=== PATIENT | female | born 1955 | race Two or more races ===

== ENCOUNTER 2019-02-22 06:52 | Emergency (ER) | payer MEDICARE, OTHER ==
[~2019-02-22] VITALS: Ht 167.6 cm; Wt 99.8 kg
[2019-02-22 07:01] VITALS: BP 180/6
--- NOTE | 2019-02-22 07:04 | Emergency Room Report ---
History of Present Illness General Chief Complaint: eye redness Source: Patient Present Illness HPI Patient is a 64-year-old female presents after increased bilateral eye redness. She reports having increased itchiness as well as tearing. She denies any fever. She had been undergoing treatment for chronic wound to her left lower extremity and states she is seeing a wound care doctor. Patient denies any fever. She reports having some increased cough. Denies any vomiting or diarrhea. Prior history of high cholesterol. Allergies: Coded Allergies: MORPHINE (Verified Allergy, Unknown, 02/22/19) Patient History Past Medical History: see triage record Reviewed Nursing Documentation: PMH: Agreed; PSxH: Agreed Review of Systems All Other Systems: negative except mentioned in HPI Physical Exam Sp02 EP Interpretation: reviewed, normal General Appearance: normal inspection, well appearing, no apparent distress, alert, GCS 15, obese Head: atraumatic Eyes: bilateral eye PERRL, bilateral eye other - bilateral eyelid redness ENT: normal ENT inspection, hearing grossly normal, normal voice Neck: normal inspection, full range of motion, supple, no bony tend Respiratory: normal inspection, lungs clear, normal breath sounds, no respiratory distress, no retraction, no wheezing Cardiovascular #1: regular rate, rhythm Gastrointestinal: normal inspection, normal bowel sounds, non tender, soft, no guarding, no hernia Genitourinary: no CVA tenderness Musculoskeletal: back normal, other - left leg with heel ulcer, patient refused exam. Decreased ROM left foot Neurologic: alert, client relation specialist III-XII nml as tested, oriented x3, responsive, speech normal, normal inspection Psychiatric: normal inspection, judgement/insight normal, mood/affect normal Skin: other - eyelid erythema Medical Decision Making Diagnostic Impression: Primary Impression: Conjunctivitis ER Course Patient presented for bilateral eye redness. Differential diagnosis include was not limited to conjunctivitis, allergic reaction, glaucoma among others. Patient has a benign exam and does not appear to require any imaging or laboratory testing at this time. Patient appears to have some viral upper respiratory infection. Did have some tenderness to her left lower extremity but refuses to have exam there. Patient was advised that this may lead to worsening of any problems to that area if they are not examined however she still continues to refuse. She will be given prescription for medications for symptomatic treatment. Patient states she is previously been told that she has cataracts and is currently being followed by an audit specialist and has another appointment pending. She was advised to follow-up with her audit specialist. Advised to return if worse. Status: improved Disposition: HOME, SELF-CARE Scripts Olopatadine HCl (Olopatadine HCl) 5 Ml Drops 5 ML OP TWICE A DAY, #5 ML Prov: Sigifredo Flower MD 02/22/19 Sigifredo Flower MD Feb 22, 2019 07:04
[2019-02-22] MEDS ORDERED: ACCUPRIL5 MG ORAL (07:05)
[2019-02-22] MEDS ORDERED: PANTOPRAZOLE SO40 MG ORAL (07:05)
[2019-02-22] MEDS ORDERED: OLOPATADINE HCL5 ML OP (07:07)
[2019-02-22 07:09] VITALS: BP 180/6
--- NOTE | 2019-02-22 07:09 | NUR ---
ED Nurse Note: Patient wheeled into the ER with a c/o bilateral eye itching x 1 day. Patient eye sockets appear red. Patient denies blurry vision. Patient states a hx of cataracts.
--- NOTE | 2019-02-22 07:12 | NUR ---
ER DISCHARGE NOTE: Patient is cleared to be discharged per ERMD Dr. Flower, pt is aox4, and on room air. pt was given dc and prescription instructions, pt was able to verbalize understanding, pt id band removed without complications. pt was transfered from, wheelchair to vehicle. pt took all belongings.
== END 2019-02-22 07:12 | disposition home or self-care (01) ==
LOC: EMR 07:10
DX: H10.9 Unspecified conjunctivitis (principal); Z88.6 Allergy status to analgesic agent; E66.9 Obesity, unspecified; Z68.35 Body mass index [BMI] 35.0-35.9, adult
CPT/HCPCS: 99282